=== PATIENT | male | born 1970 | race Caucasian/White ===

== ENCOUNTER 2019-01-21 21:03 | Emergency (ER) | payer SELFPAY ==
[2019-01-21 21:12] VITALS: BP 138/77; PULSE 83; O2SAT 98
--- NOTE | 2019-01-21 21:33 | ERPHSYRPT ---
- History of Present Illness Time Seen by Provider: 01/21/19 21:31 Source: patient Exam Limitations: no limitations Patient Subjective Stated Complaint: pt is alert and oriented. pt comes in via law enforcement. pt denies pain. pt denies sob, chest pain, abd pain, cough, sore throat. pt is in no distress. afebrile, lungs are clear. pt is pleasant. Triage Nursing Assessment: see above Physician History: 48-year-old white male brought by police for care home clearance. Patient states that he has had a couple of beers he denies any other complaints she denies any illicit drug use. Past medical history is negative past surgical history is negative. Social history positive for occasional alcohol use. Timing/Duration: today Severity: mild Modifying Factors: Improves With: nothing Associated Symptoms: No nausea, No vomiting, No abdominal pain, No shortness of breath, No heartburn, No diaphoresis, No cough, No chills, No chest pain, No fever, No headaches, No loss of appetite, No rash, No syncope, No seizure, No weakness Allergies/Adverse Reactions: No Known Drug Allergies Allergy (Unverified 01/21/19 21:12) Home Medications: No Reportable Medications [No Reported Medications] 01/21/19 [History] Immunizations Up to Date: Yes - Review of Systems Constitutional: No Fever, No Chills Eyes: No Symptoms Ears, Nose, & Throat: No Symptoms Respiratory: No Cough, No Dyspnea Cardiac: No Chest Pain, No Edema, No Syncope Abdominal/Gastrointestinal: No Abdominal Pain, No Nausea, No Vomiting, No Diarrhea Genitourinary Symptoms: No Dysuria Musculoskeletal: No Back Pain, No Neck Pain Skin: No Rash Neurological: No Dizziness, No Focal Weakness, No Sensory Changes Psychological: No Symptoms Endocrine: No Symptoms All Other Systems: Reviewed and Negative - Past Medical History Pertinent Past Medical History: No - Past Surgical History Past Surgical History: No - Social History Smoking Status: Never smoker Drug Use: none - Nursing Vital Signs Nursing Vital Signs: Initial Vital Signs Temperature 97.5 F 01/21/19 21:06 Pulse Rate 83 01/21/19 21:06 Respiratory Rate 18 01/21/19 21:06 Blood Pressure 138/77 01/21/19 21:06 O2 Sat by Pulse Oximetry 98 01/21/19 21:06 Pain Scale Pain Intensity 0 - Physical Exam General Appearance: no apparent distress, alert Eye Exam: PERRL/EOMI, eyes nml inspection Ears, Nose, Throat Exam: normal ENT inspection, TMs normal, pharynx normal, moist mucous membranes Neck Exam: normal inspection, non-tender, supple, full range of motion Respiratory Exam: normal breath sounds, lungs clear, No respiratory distress Cardiovascular Exam: regular rate/rhythm, normal heart sounds, normal peripheral pulses, capillary refill <2 sec Gastrointestinal/Abdomen Exam: soft, normal bowel sounds, No tenderness, No mass Back Exam: normal inspection, normal range of motion, No CVA tenderness, No vertebral tenderness Extremity Exam: normal inspection, normal range of motion, pelvis stable Neurologic Exam: alert, oriented x 3, cooperative, parachute mender II-XII nml as tested, normal mood/affect, nml cerebellar function, nml station & gait, sensation nml, No motor deficits Skin Exam: normal color, warm, dry, No rash SpO2 Interpretation: normal (98%) SpO2: 98 - Course Nursing assessment & vital signs reviewed: Yes - Progress Progress: improved Progress Note: 01/21/19 21:37 48-year-old white male brought by police for care home clearance. Patient states he drank a couple alcoholic beverages today he denies any other complaints. He denies illicit substance use. Denies past medical history. Patient is refusing blood work refusing EKG, Physical examination well-developed white male he is alert oriented 3, Head is atraumatic normocephalic. Eyes PERRLA EOMI fundi are unremarkable. Ears TMs cihng intact bilaterally. Nose is clear. Throat is clear. Neck supple. Lungs are clear. Heart regular rate and rhythm without murmur. Abdomen soft nontender nondistended positive bowel sounds. Extremities full range of motion pulse equal symmetrical 2 over 4. Neuro cranial nerves II through XII are intact DTRs symmetrical 2 over 4 [place] Coma Scale is 15. Impression [facility] clearance. Patient in no acute distress Will discharge patient patient has signed AMA for test. - Departure Departure Disposition: [facility] Clinical Impression: [facility] clearance Condition: Fair Critical Care Time: No Additional Instructions: Proceed to care home or home. You have refused medical testing. You may return for any problem. Follow-up with care home doctor. Return for acute distress or for severe symptoms.
== END 2019-01-21 21:45 | disposition home or self-care (01) ==
LOC: ED 21:03 → EEVIPCON 21:03 → ED 21:45
DX: Z02.89 Encounter for other administrative examinations (principal)
CPT/HCPCS: 99283